=== PATIENT | male | born 1965 | race Caucasian/White ===

== ENCOUNTER 2016-09-01 04:01 | Emergency (ER) | payer OTHER | END 2016-09-01 05:30 | disposition left against medical advice (07) | LOC: ER1 04:01 | DX: Z53.21 Procedure and treatment not carried out due to patient leaving prior to being seen by health care provider (principal) | CPT/HCPCS: 93005 ==

== ENCOUNTER → 2016-09-30 | Outpatient (CLI) | payer OTHER ==
[2016-09-30 15:59] LABS: HEMOGLOBIN 15.5 gm/dl (14.0-17.5); RED BLOOD COUNT 5.19 M/UL (4.20-5.50); WHITE BLOOD COUNT 5.3 K/UL (4.5-11.0)
[2016-09-30 16:00] LABS: BUN/CREATININE RATIO 21 (0-10)
== END ==
LOC: LAB 13:07
PROVIDERS: Family Medicine
DX: I10 Essential (primary) hypertension (principal); M54.5 Low back pain; M54.6 Pain in thoracic spine; K76.0 Fatty (change of) liver, not elsewhere classified; R73.9 Hyperglycemia, unspecified; E78.2 Mixed hyperlipidemia; M99.04 Segmental and somatic dysfunction of sacral region; M99.08 Segmental and somatic dysfunction of rib cage; M99.02 Segmental and somatic dysfunction of thoracic region; E55.9 Vitamin D deficiency, unspecified; R35.0 Frequency of micturition
CPT/HCPCS: 36415; 80053; 80061; 82150; 83036; 83690; 83704; 84153; 84443; 84550; 85025; 86140; 86235; 86431